=== PATIENT | male | born 1940 | race Caucasian/White ===

== ENCOUNTER 2025-05-21 15:42 | Inpatient (IN) | payer MEDICARE, BC ==
[2025-05-21 16:54] VITALS: BMI 21.6
[2025-05-21] MEDS ORDERED: Melatonin 3 MG TAB PO PRN (17:37)
[2025-05-21] MEDS ORDERED: Senokot S 8.6-50 MG TAB PO PRN (17:37)
[2025-05-21] MEDS ORDERED: Ondansetron PF 4 MG/2 ML Vial IVP PRN (17:37)
[2025-05-21] MEDS ORDERED: Calcium Carbonate 500 MG ChewTAB PO PRN (17:37)
[2025-05-21] MEDS: Rosuvastatin 10 MG TAB PO SCH (20:28)
[2025-05-21] MEDS: Lisinopril 20 MG TAB PO SCH (20:29)
[2025-05-21 20:46] LABS: Troponin I Less than 0.010 ng/mL (< 0.028)
[2025-05-21] MEDS: PNEUMOC 20-VAL CONJ-DIP CRM/PF 0.5 ML SYRINGE IM ONE (20:57)
[2025-05-21] MEDS: Gabapentin 300 MG CAP PO SCH (21:26)
[2025-05-22 05:07] LABS: Anion Gap 10 mmol/L (10-20); BUN (Urea Nitrogen) 16 mg/dL (8.4-25.7); Calc. Creatinine Clearance 66 mL/min (70-130); Calcium 8.6 mg/dL (7.8-10.44); Carbon Dioxide 30 mmol/L (23-31); Chloride 107 mmol/L (98-107); Glucose 92 mg/dL (83-110); Potassium 4.0 mmol/L (3.5-5.1); Sodium 143 mmol/L (136-145)
[2025-05-22 05:40] LABS: Troponin I Less than 0.010 ng/mL (< 0.028)
[2025-05-22] MEDS: Nitroglycerin 0.4 MG TAB (25 Tab Bottle) SL PRN (08:17)
[2025-05-22] MEDS ORDERED: Communication Order-Pharmacy FS SCH (08:30)
[2025-05-22] MEDS: Oxybutynin 5 MG TAB PO SCH (08:40)
[2025-05-22] MEDS: Aspirin 81 mg Enteric Coated Tablet PO SCH (08:40)
[2025-05-22] MEDS: Enoxaparin 40 MG (0.4 mL) SYRINGE SC SCH (08:41)
[2025-05-22] MEDS: Acetaminophen 325 MG TAB PO PRN (08:41)
[2025-05-22] MEDS ORDERED: Lisinopril 20 MG TAB PO SCH (09:00)
[2025-05-23 05:04] LABS: #Basophils 0.07 10x3/uL (0.0-0.2); #Eosinophils 0.27 10x3/uL (0.0-0.5); #Monocytes 0.54 10x3/uL (0.0-1.1); #Neutrophils 4.58 10x3/uL (1.5-8.4); %Basophils 1.0 % (0.0-2.0); %Eosinophils 3.9 % (0.0-6.0); %Lymphocytes 21.4 % (18.0-47.0); %Monocytes 7.7 % (0.0-10.0); %Neutrophils 65.7 % (40.0-75.0); Hematocrit 41.5 % (38.8-50.0); Hemoglobin 14.0 g/dL (13.5-17.5); Mean Corpuscular Hemoglobin 31.3 pg (27.0-33.0); Mean Corpuscular Volume 92.8 fL (81.2-95.1); Platelet Count 192 10x3/uL (150-450); Red Blood Cell (RBC) Count 4.47 10x6/uL (4.32-5.72); White Blood Cell (WBC) Count 6.97 10x3/uL (3.5-10.5)
[2025-05-23 05:18] LABS: INR-International Normal Ratio 1.1; PTT 25.7 sec (22.0-33.0); Prothrombin Time 11.5 sec (9.5-12.1)
[2025-05-23 05:22] LABS: ALT (SGPT) 21 U/L (Less than 45); AST (SGOT) 22 U/L (11-34); Albumin 4.0 g/dL (3.1-4.5); Alkaline Phosphatase 54 U/L (40-110); Anion Gap 9 mmol/L (10-20); BUN (Urea Nitrogen) 19 mg/dL (8.4-25.7); Bilirubin, Total 1.9 mg/dL (0.3-1.2); Calc. Creatinine Clearance 62 mL/min (70-130); Calcium 9.3 mg/dL (7.8-10.44); Carbon Dioxide 29 mmol/L (23-31); Chloride 105 mmol/L (98-107); Globulin 2.5 g/dL (2.4-3.5); Glucose 98 mg/dL (83-110); Potassium 4.4 mmol/L (3.5-5.1); Sodium 139 mmol/L (136-145)
[2025-05-23] MEDS ORDERED: Nitroglycerin 50 MG/250 ML BOT 250 ML ONE (06:03)
[2025-05-23] MEDS ORDERED: Heparin 10,000 UNITS/ 10 ML VIAL ONE ×2 (06:03→07:51)
[2025-05-23] MEDS ORDERED: Lidocaine 1% (PF) 30 ML VIAL ONE (06:03)
[2025-05-23] MEDS ORDERED: PHENYLEPHRINE-NS 100 MCG/ML 10 ML SYRINGE ONE (06:03)
[2025-05-23] MEDS ORDERED: TICAGRELOR 90 MG TABLET ONE (07:15)
[2025-05-23 15:08] VITALS: BP 149/79; TEMP 98.4
[2025-05-23] MEDS ORDERED: TICAGRELOR 90 MG TABLET PO SCH (21:00)
== END 2025-05-23 15:58 | disposition home or self-care (01) | DRG 322 ==
LOC: CSHTELE 16:42 → OBSVTOIN 05-22 20:33
PROVIDERS: ADMIT Internal Medicine; ATTEND Internal Medicine
PROC: 027034Z Dilation of Coronary Artery, One Artery with Drug-eluting Intraluminal Device, Percutaneous Approach (ICD-10-PCS; principal; 2025-05-23)
PROC: 4A023N7 Measurement of Cardiac Sampling and Pressure, Left Heart, Percutaneous Approach (ICD-10-PCS; 2025-05-23)
PROC: B2151ZZ Fluoroscopy of Left Heart using Low Osmolar Contrast (ICD-10-PCS; 2025-05-23)
PROC: B2111ZZ Fluoroscopy of Multiple Coronary Arteries using Low Osmolar Contrast (ICD-10-PCS; 2025-05-23)
DX: I25.10 Atherosclerotic heart disease of native coronary artery without angina pectoris (principal); I47.10 Supraventricular tachycardia, unspecified; I10 Essential (primary) hypertension; E78.5 Hyperlipidemia, unspecified; G62.9 Polyneuropathy, unspecified; I16.0 Hypertensive urgency; Z90.49 Acquired absence of other specified parts of digestive tract; Z98.890 Other specified postprocedural states; Z82.49 Family history of ischemic heart disease and other diseases of the circulatory system; Z79.899 Other long term (current) drug therapy
CPT/HCPCS: 36415; 71045; 80048; 80053; 83880; 84443; 84484; 85025; 85347; 85610; 85730; 92928; 93005; 93010; 93458; 99152; 99153; C1769; C1874; C1887; C1894; C9600; J0461; J1644; J1650; J2003; J2250

== ENCOUNTER 2025-06-25 09:59 | Observation (INO) | payer MEDICARE, BC ==
[2025-06-25 10:46] LABS: #Basophils 0.08 10x3/uL (0.0-0.2); #Eosinophils 0.61 10x3/uL (0.0-0.5); #Monocytes 0.53 10x3/uL (0.0-1.1); #Neutrophils 4.40 10x3/uL (1.5-8.4); %Basophils 1.2 % (0.0-2.0); %Eosinophils 8.8 % (0.0-6.0); %Lymphocytes 18.8 % (18.0-47.0); %Monocytes 7.6 % (0.0-10.0); %Neutrophils 63.3 % (40.0-75.0); Hematocrit 37.9 % (38.8-50.0); Hemoglobin 12.7 g/dL (13.5-17.5); Mean Corpuscular Hemoglobin 31.5 pg (27.0-33.0); Mean Corpuscular Volume 94.0 fL (81.2-95.1); Platelet Count 166 10x3/uL (150-450); Red Blood Cell (RBC) Count 4.03 10x6/uL (4.32-5.72); White Blood Cell (WBC) Count 6.95 10x3/uL (3.5-10.5)
[2025-06-25 11:10] LABS: ALT (SGPT) 28 U/L (Less than 45); AST (SGOT) 23 U/L (11-34); Albumin 4.1 g/dL (3.1-4.5); Alkaline Phosphatase 56 U/L (40-110); Anion Gap 13 mmol/L (10-20); BUN (Urea Nitrogen) 23 mg/dL (8.4-25.7); Bilirubin, Total 2.1 mg/dL (0.3-1.2); Calc. Creatinine Clearance 0 mL/min (70-130); Calcium 9.7 mg/dL (7.8-10.44); Carbon Dioxide 26 mmol/L (23-31); Chloride 108 mmol/L (98-107); Globulin 2.2 g/dL (2.4-3.5); Glucose 107 mg/dL (83-110); Potassium 4.1 mmol/L (3.5-5.1); Sodium 143 mmol/L (136-145)
[2025-06-25 11:11] LABS: Troponin I Less than 0.010 ng/mL (< 0.028)
[2025-06-25] MEDS ORDERED: Melatonin 3 MG TAB PO PRN (13:22)
[2025-06-25] MEDS ORDERED: Acetaminophen 325 MG TAB PO PRN (13:22)
[2025-06-25 14:21] LABS: Troponin I Less than 0.010 ng/mL (< 0.028)
[2025-06-25 17:07] LABS: Troponin I 0.011 ng/mL (< 0.028)
[2025-06-25 18:26] VITALS: BMI 21.6
[2025-06-25] MEDS ORDERED: TICAGRELOR 90 MG TABLET ONE (21:39)
[2025-06-25] MEDS ORDERED: Gabapentin 300 MG CAP ONE (21:42)
[2025-06-25] MEDS: TICAGRELOR 90 MG TABLET PO SCH (21:53)
[2025-06-25] MEDS: Gabapentin 300 MG CAP PO SCH (21:53)
[2025-06-25] MEDS: Rosuvastatin 10 MG TAB PO SCH (21:53)
[2025-06-26 03:10] LABS: #Basophils 0.07 10x3/uL (0.0-0.2); #Eosinophils 0.47 10x3/uL (0.0-0.5); #Monocytes 0.65 10x3/uL (0.0-1.1); #Neutrophils 4.80 10x3/uL (1.5-8.4); %Basophils 0.9 % (0.0-2.0); %Eosinophils 6.3 % (0.0-6.0); %Lymphocytes 19.5 % (18.0-47.0); %Monocytes 8.7 % (0.0-10.0); %Neutrophils 64.2 % (40.0-75.0); Hematocrit 38.2 % (38.8-50.0); Hemoglobin 12.7 g/dL (13.5-17.5); Mean Corpuscular Hemoglobin 30.6 pg (27.0-33.0); Mean Corpuscular Volume 92.0 fL (81.2-95.1); Platelet Count 168 10x3/uL (150-450); Red Blood Cell (RBC) Count 4.15 10x6/uL (4.32-5.72); White Blood Cell (WBC) Count 7.48 10x3/uL (3.5-10.5)
[2025-06-26 03:39] LABS: Troponin I Less than 0.010 ng/mL (< 0.028)
[2025-06-26 03:43] LABS: Anion Gap 11 mmol/L (10-20); BUN (Urea Nitrogen) 24 mg/dL (8.4-25.7); Calc. Creatinine Clearance 62 mL/min (70-130); Calcium 9.4 mg/dL (7.8-10.44); Carbon Dioxide 27 mmol/L (23-31); Chloride 106 mmol/L (98-107); Glucose 105 mg/dL (83-110); Potassium 3.8 mmol/L (3.5-5.1); Sodium 140 mmol/L (136-145)
[2025-06-26] MEDS ORDERED: Aspirin 81 mg Enteric Coated Tablet ONE (08:53)
[2025-06-26] MEDS ORDERED: TICAGRELOR 90 MG TABLET ONE (08:54)
[2025-06-26] MEDS: Aspirin 81 mg Enteric Coated Tablet PO SCH (08:58)
[2025-06-26 12:05] VITALS: BP 171/83; TEMP 97.5
== END 2025-06-26 12:12 | disposition home or self-care (01) ==
LOC: CSHERS 09:59 → CSHERHOLD 13:23
PROVIDERS: ADMIT Family Medicine; ATTEND Internal Medicine
DX: R07.2 Precordial pain (principal); R00.2 Palpitations; R06.02 Shortness of breath; I25.10 Atherosclerotic heart disease of native coronary artery without angina pectoris; I47.19 Other supraventricular tachycardia; I10 Essential (primary) hypertension; E78.5 Hyperlipidemia, unspecified; G62.9 Polyneuropathy, unspecified; Z95.5 Presence of coronary angioplasty implant and graft; Z90.89 Acquired absence of other organs; Z79.82 Long term (current) use of aspirin; Z79.899 Other long term (current) drug therapy
CPT/HCPCS: 71045; 80048; 80053; 84484 ×3; 85025 ×2; 93005; 94760; 99285; G0378 ×2; 36415; 93010